=== PATIENT | female | born 1955 | race Caucasian/White ===

== ENCOUNTER 2016-07-26 08:10 | Emergency (ER) | payer BC ==
--- NOTE | ~2016-07-26 | CT2 ---
[facility] A Service of [facility] & [facility] RADIOLOGY TEXT RESULTS PATIENT: JONNATHAN RECIO LOCATION: SED : 54 UNIT #: [id number] AGE: [address]: Kade Abel MD SEX: F ORDER DR: [id number] [place] [id number] E MR#: [id number] Acc #: [id number] NAME: JONNATHAN RECIO. : 1955 SEX: F STUDY DATE/TIME: 07/26/2016 10:03 UNIT: SED ROOM: STUDY DESCRIPTION: CT Abd and Pelv W Cont Attending Physician: Kade Abel M.D. Referring Physician: Kade Abel M.D. Ordering Physician: Kade Abel M.D. Primary Care Physician: Christiana Morgan M.D. MEDICAL IMAGING REPORT This report is preliminary unless electronic signature is present. EXAM CT abdomen and pelvis with contrast, 07/26/2016, 1003 hours. CLINICAL HISTORY 60-year-old woman complaining of left lower quadrant and left upper quadrant abdominal pain since yesterday with diarrhea and bloody stools for [address] abdomen, 05/05/2009. TECHNIQUE Dynamic helical CT images were obtained from the lung bases through the pubic symphysis with oral and intravenous contrast. Sagittal and coronal reconstructions were performed. Contrast was Isovue-370 100 mL IV. Total exam DLP 1198 mGy-cm. This CT exam was performed with one or more of the following radiation dose reduction techniques: automatic exposure control, adjustment of mA and/or kV according to patient size, and iterative reconstruction. FINDINGS Images through the lung bases demonstrate clear lungs. There is a calcified granuloma at the left base unchanged. There is no effusion. Images through the abdomen demonstrate a normal appearance of the liver and spleen. There is mild fatty change in the head and uncinate process of the pancreas, unchanged. There is no inflammation or pancreatic ductal dilatation. There is cholecystectomy change with normal-caliber bile ducts. The adrenal glands are normal. The kidneys demonstrate no mass or stone. There is no evidence of ureteral calculus. The abdominal aorta is normal in caliber. [facility]. [facility] A Service of [facility] & [facility] RADIOLOGY TEXT RESULTS PATIENT: JONNATHAN RECIO LOCATION: SED : 54 UNIT #: [id number] AGE: [address]: Kade Abel MD SEX: F ORDER DR: The stomach is only partially opacified and partially distended but does appear normal. The small bowel is well opacified with contrast and is normal in caliber. There is no small bowel obstruction. The terminal ileum, cecum, and appendix are normal. The colon is unopacified. There appears to be wall thickening extending from the hepatic flexure of the colon through the transverse colon to the descending colon and partially into the sigmoid colon. This very long segment of involvement suggests colitis either infectious or inflammatory. There is no pericolonic stranding, fluid. or free air. The rectum is decompressed. IMPRESSION 1. There is diffuse contiguous wall thickening from the hepatic flexure of the colon through the sigmoid colon, most consistent with acute colitis which is infectious or inflammatory. The rectum appears decompressed and does not appear thick-walled. There is no small bowel distension. The appendix is normal. 2. There is no free air or free fluid. Dictated by... Natividad De Leon M.D. THIS IS AN ELECTRONICALLY VERIFIED REPORT Natividad De Leon M.D. at 07/26/2016 1:43 PM PARDEEP/jonathan TD: 07/26/2016 12:01 JOB #: [id number] MEDICAL IMAGING REPORT Page 1 of 1
[~2016-07-26 08:10] MED LIST: ASPIRIN81 M1 PO; CADUET 5 MG-101 EACH PO; CADUET 5 MG/101 TAB PO; CO Q-1050 MG PO; COREG6.25 M1 PO; DIOVAN160 MG PO; HCTZ PO; MYRBETRIQ50 MG PO; PRISTIQ50 MG PO; SIMVASTATIN40 MG PO; VOLTAREN50 MG PO; XANAX XR0.5 MG PO; XANAX0.5 M1 PO
[2016-07-26 08:46] LABS: BASOPHIL# 0.1 X10e3 (0-0.3); MEAN PLATELET VOLUME 7.5 FL (6.5-11.5); MONOCYTE# 0.8 X10e3 (0-1.0)
[2016-07-26 08:47] LABS: BASOPHIL% 0.5 % (0-2.5); EOSINOPHIL# 0.1 X10e3 (0-0.7); HEMATOCRIT 38.2 % (35.0-45.0); HEMOGLOBIN 12.5 gm/dL (12.0-16.0); LYMPHOCYTE# 2.2 X10e3 (1.0-3.5); LYMPHOCYTE% 17.1 % (17.0-45.0); MEAN CELL VOLUME 87.3 FL (83-96); MEAN CORPUSCULAR HEMOGLOBIN 28.6 PG (28-34); MEAN CORPUSCULAR HGB CONC 32.8 g/dL (30-36); NEUTROPHIL# 9.7 X10e3 (1.5-7.1); NEUTROPHIL% 75.4 % (40-75); PLATELET COUNT 273 X10e3 (140-420); RED BLOOD COUNT 4.38 X10e (3.90-5.30); RED CELL DISTRIBUTION WIDTH 12.8 % (11.0-15.5); WHITE BLOOD COUNT 12.9 X10e3 (4.0-10.5)
[2016-07-26 08:56] LABS: DIFF IND NO
[2016-07-26 09:11] LABS: ALBUMIN SERUM 4.5 g/dL (3.5-5.0); ALKALINE PHOSPHATASE 72 U/L (32-92); ALT (SGPT) 23 U/L (10-40); AMYLASE 26 U/L (0-46); AST (SGOT) 20 U/L (10-42); BILIRUBIN, DIRECT 0.1 mg/dL (0.0-0.2); BILIRUBIN,INDIRECT 0.7 mg/dL (0.0-0.9); BILIRUBIN,TOTAL 0.8 mg/dL (0.2-2.0); BLOOD UREA NITROGEN 20 mg/dL (9-23); CALCIUM SERUM 9.1 mg/dL (8.4-10.2); CARBON DIOXIDE 25 mmol/L (22-31); CHLORIDE 103 mmol/L (100-111); CREATININE SERUM 0.8 mg/dL (0.6-1.4); GLOM FILT RATE Estimated ABOVE60 mL/min (>60); GLUCOSE FASTING 96 mg/dL (70-110); LIPASE 26 U/L (22-51); POTASSIUM 3.3 mmol/L (3.5-5.1); PROTEIN TOTAL SERUM 7.6 g/dL (6.0-8.3); SODIUM 138 mmol/L (135-145)
[2016-07-26 09:28] LABS: URINE SOURCE CLEAN CATCH
[2016-07-26 09:30] LABS: URINE APPEARANCE CLEAR; URINE BILIRUBIN NEG (NEG); URINE BLOOD 1+ (NEG); URINE COLOR YELLOW; URINE GLUCOSE NEG (NORM); URINE KETONE NEG (NEG); URINE LEUKOCYTE ESTERASE NEG (NEG); URINE NITRATE NEG (NEG); URINE PROTEIN NEG (NEG); URINE SPECIFIC GRAVITY <=1.005 (1.003-1.035); URINE UROBILINOGEN 0.2 MG/DL (NORM)
[2016-07-26 09:49] LABS: MICRO INDICATED? YES
[2016-07-26 09:52] LABS: CULTURE INDICATED? YES; URINE BACTERIA 2+ (NEG); URINE RBC 0-2 /[HPF] (0-2); URINE SQUAMOUS EPITHELIAL CELL FEW /[HPF]; URINE WBC 0-2 /[HPF] (0-5)
[2016-07-26] MEDS ORDERED: CIPRO PO (11:00)
[2016-07-26] MEDS ORDERED: FLAGYL PO (11:00)
[2016-07-26] MEDS ORDERED: HYDROCODON-ACE1 EAC9 PO (11:01)
[2016-07-26] MEDS ORDERED: ZOFRAN ODT4 MG/UDTAB PO (11:01)
== END 2016-07-26 11:03 | disposition home or self-care (01) ==
LOC: SED 08:10
PROVIDERS: Emergency Medicine
DX: K52.9 Noninfective gastroenteritis and colitis, unspecified (principal); E78.5 Hyperlipidemia, unspecified; Z90.49 Acquired absence of other specified parts of digestive tract; Z79.899 Other long term (current) drug therapy
CPT/HCPCS: 36415; 74177; 80048; 80076; 81003; 82150; 82270; 83690; 85025; 87086; 87088; 87186; 96361; 96374; 96375; 99284; C9113; J2405; Q9967

== ENCOUNTER 2016-11-08 15:33 | Emergency (ER) | payer BC ==
--- NOTE | ~2016-11-08 | CT71 ---
[facility]. [facility] A Service of [facility] RADIOLOGY TEXT RESULTS PATIENT: JONNATHAN RECIO LOCATION: SED : 54 UNIT #: [id number] AGE: [address]: MAGGIE SALEH SEX: F ORDER DR: [id number] [place] [id number] E MR#: [id number] Acc #: [id number] NAME: JONNATHAN RECIO. : 1955 SEX: F STUDY DATE/TIME: 11/08/2016 17:13 UNIT: SED ROOM: STUDY DESCRIPTION: CT Head Wo Contrast Ordering Physician: [facility] MEDICAL IMAGING REPORT This report is preliminary unless electronic signature is present. EXAM Head CT, no contrast, 11/08/2016 TECHNIQUE Axial unenhanced head CT. This CT exam was performed with one or more of the following radiation dose reduction techniques: automatic exposure control, adjustment of mA and/or kV according to patient size, and iterative reconstruction. HISTORY Blurred vision and headache today. COMPARISON STUDIES None. FINDINGS Skull base, calvarium and extracranial soft tissues are unremarkable, except for some mild left ethmoid sinus mucosal thickening. There is no intracranial hemorrhage or mass. Brain parenchymal density is normal. There is no hydrocephalus or extraaxial fluid collection. IMPRESSION Mild left ethmoid sinus mucosal thickening, otherwise normal negative unenhanced head CT. Dictated by... Brady Foster M.D. [facility] A Service of [facility] RADIOLOGY TEXT RESULTS PATIENT: JONNATHAN RECIO LOCATION: SED : 54 UNIT #: [id number] AGE: [address]: MAGGIE SALEH SEX: F ORDER DR: THIS IS AN ELECTRONICALLY VERIFIED REPORT Brady Foster M.D. at 11/14/2016 10:34 AM TEV/pcl TD: 11/08/2016 21:05 JOB #: [id number] MEDICAL IMAGING REPORT Page 1 of 1
--- NOTE | ~2016-11-08 | EKG ---
PATIENT: JONNATHAN RECIO UNIT #: [id number] Ventricular Rate: 100 BPM Atrial Rate: 100 BPM P-R Interval: 166 ms QRS Duration: 148 ms Q-T Interval: 390 ms QTC Calculation(Bezet): 503 ms P [place]: 47 degrees Calculated R [place]: -33 degrees Calculated T [place]: 112 degrees Diagnosis Line: Normal sinus rhythm Diagnosis Line: Possible Left atrial enlargement Diagnosis Line: Left axis deviation Diagnosis Line: Left bundle branch block Diagnosis Line: Abnormal ECG Diagnosis Line: When compared with ECG of 12-AUG-2010 05:58, Diagnosis Line: No significant change was found Diagnosis Line: Confirmed by JOSE DAVID LUNDY MD ([id number]) on Diagnosis Line: 11/09/2016 5:29:21 PM INTERPRETING MD: KAMRON JOSEPH
--- NOTE | ~2016-11-08 | CR63 ---
[facility] A Service of [facility] & [facility] RADIOLOGY TEXT RESULTS PATIENT: JONNATHAN RECIO LOCATION: SED : 54 UNIT #: [id number] AGE: [address]: MAGGIE SALEH SEX: F ORDER DR: [id number] [place] [id number] E MR#: [id number] Acc #: [id number] NAME: JONNATHAN RECIO. : 1955 SEX: F STUDY DATE/TIME: 11/08/2016 17:20 UNIT: SED ROOM: STUDY DESCRIPTION: CR Chest 2 View Ordering Physician: [facility] MEDICAL IMAGING REPORT This report is preliminary unless electronic signature is present. EXAM Chest, PA and lateral, 2 views, 11/08/2016 COMPARISON STUDIES Chest, 08/13/2014. HISTORY Shakes. Blurred vision. Body aches. Tremors. Symptoms for 1 day. FINDINGS There is scoliosis, and mild cardiomegaly but no acute abnormality. There is no infiltrate, effusion or pneumothorax. Dictated by... Brady Foster M.D. THIS IS AN ELECTRONICALLY VERIFIED REPORT Brady Foster M.D. at 11/14/2016 10:34 AM TEV/pcl TD: 11/08/2016 21:00 JOB #: [id number] MEDICAL IMAGING REPORT Page 1 of 1
[~2016-11-08 15:33] MED LIST changes: +CIPRO PO; +FLAGYL PO; +HYDROCODON-ACE1 EAC9 PO; +ZOFRAN ODT4 MG/UDTAB PO
[2016-11-08 16:38] LABS: URINE SOURCE CLEAN CATCH
[2016-11-08 16:40] LABS: URINE APPEARANCE CLEAR; URINE BILIRUBIN NEG (NEG); URINE BLOOD 1+ (NEG); URINE COLOR YELLOW; URINE GLUCOSE NEG (NORM); URINE KETONE NEG (NEG); URINE LEUKOCYTE ESTERASE NEG (NEG); URINE NITRATE NEG (NEG); URINE PROTEIN NEG (NEG); URINE SPECIFIC GRAVITY 1.015 (1.003-1.035); URINE UROBILINOGEN 0.2 MG/DL (NORM)
[2016-11-08 16:41] LABS: MICRO INDICATED? YES
[2016-11-08 16:46] LABS: BASOPHIL% 0.3 % (0-2.5); DIFF IND NO; EOSINOPHIL# 0.2 X10e3 (0-0.7); EOSINOPHIL% 1.5 % (0.0-7.0); HEMATOCRIT 38.6 % (35.0-45.0); HEMOGLOBIN 12.9 gm/dL (12.0-16.0); LYMPHOCYTE# 0.6 X10e3 (1.0-3.5); LYMPHOCYTE% 5.9 % (17.0-45.0); MEAN CELL VOLUME 88.5 FL (83-96); MEAN CORPUSCULAR HEMOGLOBIN 29.6 PG (28-34); MEAN CORPUSCULAR HGB CONC 33.5 g/dL (30-36); MEAN PLATELET VOLUME 7.4 FL (6.5-11.5); MONOCYTE# 0.6 X10e3 (0-1.0); MONOCYTE% 5.9 % (3.0-12.0); NEUTROPHIL# 9.1 X10e3 (1.5-7.1); NEUTROPHIL% 86.4 % (40-75); PLATELET COUNT 200 X10e3 (140-420); RED BLOOD COUNT 4.36 X10e (3.90-5.30); RED CELL DISTRIBUTION WIDTH 12.7 % (11.0-15.5); WHITE BLOOD COUNT 10.5 X10e3 (4.0-10.5)
[2016-11-08 16:48] LABS: CULTURE INDICATED? NO; URINE BACTERIA NEG (NEG); URINE WBC 0-2 /[HPF] (0-5)
[2016-11-08 16:51] LABS: POC - CKMB <1.0 ng/mL (0.0-7.9); POC - TROPONIN <0.05 ng/mL (<=0.05)
[2016-11-08 16:59] LABS: ALBUMIN SERUM 4.3 g/dL (3.5-5.0); BILIRUBIN,TOTAL 0.4 mg/dL (0.2-2.0); BUN/CREATININE RATIO 25.71; CALCIUM SERUM 8.6 mg/dL (8.4-10.2); CREATININE SERUM 0.7 mg/dL (0.6-1.4); GLOM FILT RATE Estimated 92.9 mL/min (>60); POTASSIUM 3.2 mmol/L (3.5-5.1); PROTEIN TOTAL SERUM 6.8 g/dL (6.0-8.3)
[2016-11-08 18:25] LABS: INFLUENZA A NEG (NEG); INFLUENZA B NEG (NEG)
[2016-11-08 18:53] LABS: POC - CKMB <1.0 ng/mL (0.0-7.9); POC - TROPONIN <0.05 ng/mL (<=0.05)
== END 2016-11-08 19:56 | disposition home or self-care (01) ==
LOC: SED 15:33
PROVIDERS: Nurse Practitioner
DX: J32.2 Chronic ethmoidal sinusitis (principal); I10 Essential (primary) hypertension; Z90.49 Acquired absence of other specified parts of digestive tract; K52.9 Noninfective gastroenteritis and colitis, unspecified
CPT/HCPCS: 36415; 70450; 71020; 80053; 81003; 82553; 84484; 85025; 87804; 93005; 96374; 96375; 99284; J1885; J2405